=== PATIENT | female | born 1965 | race Caucasian/White ===

== ENCOUNTER 2016-12-30 18:04 | Emergency (ER) | payer BC ==
[~2016-12-30] VITALS: Ht 170.2 cm; Wt 65.6 kg
[~2016-12-30 18:04] MED LIST: INDERAL
[2016-12-30] MEDS ORDERED: KEFLEX500 MG PO (20:32)
[2016-12-30] MEDS ORDERED: VOLTAREN50 MG PO (20:32)
[2016-12-30 21:02] VITALS: BP 118/78
== END 2016-12-30 21:03 | disposition home or self-care (01) ==
LOC: EME 18:04
DX: L03.115 Cellulitis of right lower limb (principal); Z88.6 Allergy status to analgesic agent
CPT/HCPCS: 99281; 99284

== ENCOUNTER 2018-01-28 17:31 | Emergency (ER) | payer BC ==
[~2018-01-28] VITALS: Ht 170.2 cm; Wt 66.7 kg
[~2018-01-28 17:31] MED LIST changes: +KEFLEX500 MG PO; +VOLTAREN50 MG PO
[2018-01-28 20:04] VITALS: BP 118/72
[2018-01-28] MEDS ORDERED: PROPRANOLOL HCL60 MG PO (20:06)
== END 2018-01-28 20:08 | disposition home or self-care (01) ==
LOC: EME 17:31
PROC: 3E0234Z Introduction of Serum, Toxoid and Vaccine into Muscle, Percutaneous Approach (ICD-10-PCS; principal; 2018-01-28)
DX: S71.132A Puncture wound without foreign body, left thigh, initial encounter (principal); W54.0XXA Bitten by dog, initial encounter; Z20.3 Contact with and (suspected) exposure to rabies; Z23 Encounter for immunization; Z29.14 Encounter for prophylactic rabies immune globulin; Z86.718 Personal history of other venous thrombosis and embolism; Z85.3 Personal history of malignant neoplasm of breast; Z88.6 Allergy status to analgesic agent; Z88.5 Allergy status to narcotic agent
CPT/HCPCS: 99281; 99284

== ENCOUNTER 2018-05-17 17:37 | Emergency (ER) | payer BC ==
[~2018-05-17] VITALS: Ht 170.2 cm; Wt 68.1 kg
[~2018-05-17 17:37] MED LIST changes: +PROPRANOLOL HCL60 MG PO
[2018-05-17] MEDS ORDERED: VALIUM5 MG PO (19:34)
[2018-05-17] MEDS ORDERED: NAPROXEN500 MG PO (19:34)
[2018-05-17 19:45] VITALS: BP 126/77
== END 2018-05-17 19:46 | disposition home or self-care (01) ==
LOC: EME 17:37
DX: M54.41 Lumbago with sciatica, right side (principal); Z86.718 Personal history of other venous thrombosis and embolism; Z85.3 Personal history of malignant neoplasm of breast; Z90.12 Acquired absence of left breast and nipple; Z88.6 Allergy status to analgesic agent; Z88.5 Allergy status to narcotic agent
CPT/HCPCS: 72100; 99281; 99282; J8540